=== PATIENT | male | born 1965 | race Hispanic/Latino ===

== ENCOUNTER → 2017-09-19 | Day surgery (SDC) | payer BC ==
[2017-09-15 10:39] LABS: ANION GAP 12.5 mmol/L (8-16); BLOOD UREA NITROGEN 17 mg/dL (7-26); BUN/CREATININE RATIO 23 (6-25); CALCIUM 9.4 mg/dL (8.4-10.2); CARBON DIOXIDE 26 mmol/L (22-29); CHLORIDE 106 mmol/L (98-107); CREATININE, SERUM 0.75 mg/dL (0.72-1.25); EST GLOMERULAR FILTRATION RATE > 60 ML/MIN (60-); GLUCOSE 109 mg/dL (74-118); POTASSIUM 4.5 mmol/L (3.5-5.1); SODIUM 140 mmol/L (136-145)
[~2017-09-19] MED LIST: BELLADONNA/OPIUM 60 MG SUPP PR ONE; BP MED; DIABETES MED PO; FENTANYL CITRATE/PF 100MCG/2 ML INJ ONE; GENTAMICIN 80MG/NS 100 ML 100 ML IV ONE; GLIPIZIDE5 MG PO; LEVOFLOXACIN 500MG/D5W 100ML 100 ML IV ONE; LIDOCAINE HCL 2% LOCAL INJ 5 ML SDV VIAL INJ ONE; LISINOPRIL10 MG PO; MIDAZOLAM HCL 2 MG/2 ML VIAL ONE; PIPER-TAZ 3.375 GM 50 ML ONE; PROPOFOL IV EMULSION 10 MG/ML 20 ML VIAL ONE
--- NOTE | 2017-10-26 15:46 | Operative Report ---
DATE OF PROCEDURE: September 19, 2017 PREOPERATIVE DIAGNOSIS: Abnormal digital rectal examination with nodule at the right apex. POSTOPERATIVE DIAGNOSIS: Abnormal digital rectal examination with nodule at the right apex. PROCEDURES PERFORMED 1. Transrectal needle biopsies of the prostate. 2. Interpretation of ultrasonographic guidance for needle biopsies. 3. Ultrasonographic interpretation of prostate ultrasound. ANESTHESIA: General. CLINICAL SUMMARY: Javid Haq is a 52-year-old man with a right apical prostate nodule. He is brought for biopsy. He is aware of the risks of bleeding, infection, injury to adjacent structures, need for additional procedures, and elected to proceed. OPERATIVE PROCEDURE IN DETAIL: Informed consent was verified. Javid Haq was properly identified, taken to the operating room, where he was placed in a lateral position. Prostate ultrasonography was performed. Interpretation for prostate ultrasonography: Realtime ultrasonography was performed. The seminal vesicles were unremarkable. The prostate capsule was relatively smooth. were noted in the transition zone of the prostate. The prostate size was estimated at 45 mL. The right apical prostate nodule was not well visualized ultrasonographically. With ultrasonographic guidance, needle biopsies of the prostate were taken. A total of 12 biopsies were taken. Two biopsies were taken at each of 6 locations. These were differentiated right versus left and base versus mid versus apex. The patient was then uneventfully reversed from anesthesia and taken to recovery room in stable condition. There were no complications to the procedure. He tolerated the procedure well. Explicit postoperative instructions were given. Will follow the patient up in the office. Job#: [id number]
== END | disposition home or self-care (01) ==
LOC: OR 12:30
PROVIDERS: ATTEND Urology
DX: N40.2 Nodular prostate without lower urinary tract symptoms (principal); R97.20 Elevated prostate specific antigen [PSA]; I10 Essential (primary) hypertension; E11.9 Type 2 diabetes mellitus without complications; M19.90 Unspecified osteoarthritis, unspecified site; M53.9 Dorsopathy, unspecified; Z01.810 Encounter for preprocedural cardiovascular examination; Z01.812 Encounter for preprocedural laboratory examination
CPT/HCPCS: 36415 ×2; 55700; 76942; 76872; 80048; 82948; 88305; 93005; J1580; J1956; J2001; J2250; J2543

== ENCOUNTER → 2022-05-08 | Day surgery (SDC) | payer BC ==
[2022-05-06 13:02] LABS: BASOPHILS # (AUTO) 0.1 (0.0-0.1); BASOPHILS % 0.8 % (0.0-1.0); EOSINOPHILS # (AUTO) 0.1 (0.0-0.4); EOSINOPHILS % 1.2 % (0.0-6.0); HEMATOCRIT 51.9 % (38.2-49.6); HEMOGLOBIN 16.5 g/dL (14.0-18.0); LYMPHOCYTES # (AUTO) 2.8 (1.0-3.2); LYMPHOCYTES % 24.5 % (18.0-39.1); MEAN CORPUSCULAR HEMOGLOBIN 30.8 pg (28-32); MEAN CORPUSCULAR HGB CONC 31.8 g/dL (31-35); MEAN CORPUSCULAR VOLUME 96.8 fL (81-99); MONOCYTES # (AUTO) 0.8 (0.2-0.8); NEUTROPHILS # (AUTO) 7.4 (2.1-6.9); NEUTROPHILS % 66.2 % (38.7-80.0); PLATELET COUNT 221 x10e3/uL (140-360); RED BLOOD COUNT 5.36 x10e6/uL (4.3-5.7)
[2022-05-06 13:25] LABS: ANION GAP 19.8 mmol/L (8-16); CALCIUM 9.5 mg/dL (8.4-10.2); CREATININE, SERUM 0.86 mg/dL (0.72-1.25); POTASSIUM 4.8 mmol/L (3.5-5.1)
[~2022-05-08] MED LIST changes: +ALTOPREV40 MG PO; -BELLADONNA/OPIUM 60 MG SUPP PR ONE; +BUPIVACAINE 0.5%/EPI 30 ML SDV INJ ONE; +CENTRUM ADULTS1 EACH PO; +ECOTRIN81 MG PO; -GENTAMICIN 80MG/NS 100 ML 100 ML IV ONE; -LEVOFLOXACIN 500MG/D5W 100ML 100 ML IV ONE; +LIDOCAINE HCL/EPINEPHRINE/PF 10 ML VIAL ONE; +METFORMIN HCL850 MG PO; +NEOSTIGMINE 1 MG/ML 10ML VIAL ONE; -PIPER-TAZ 3.375 GM 50 ML ONE; +POVIDONE IODINE 0.05% 0.05 % ML PO ONE
[2022-05-08 11:25] VITALS: BP 118/59
== END | disposition home or self-care (01) ==
LOC: OR 08:11
PROVIDERS: ATTEND Surgery
DX: M62.89 Other specified disorders of muscle (principal); E11.9 Type 2 diabetes mellitus without complications; I10 Essential (primary) hypertension; E78.5 Hyperlipidemia, unspecified; Z01.810 Encounter for preprocedural cardiovascular examination; Z01.812 Encounter for preprocedural laboratory examination; Z79.84 Long term (current) use of oral hypoglycemic drugs; Z79.82 Long term (current) use of aspirin; Z79.899 Other long term (current) drug therapy
CPT/HCPCS: 21014; 36415 ×2; 80048; 82948; 85025; 88304; 93005; J2001; J2250; J2704; J2710; J3010